=== PATIENT | female | born 1995 | race Caucasian/White ===

== ENCOUNTER → 2018-10-20 | Outpatient (CLI) | payer BC, SELFPAY ==
[2018-10-20 14:03] LABS: Absolute Lymphocyte Count 0.93 X10^3/ul (0.83-4.51); Absolute Neutrophil Count 4.4 X10^3/uL (2.0-7.7); Basophil# 0.03 X10^3/uL; Basophil% 0.5 % (0-1); Eosinophil# 0.16 X10^3/uL; Eosinophils% 2.6 % (0-5); Hematocrit 36.1 % (37-47); Hemoglobin 11.2 g/dl (12.0-15.0); Lymphocyte # 0.93 X10^3/ul (4.0); Lymphocyte % 15.2 % (19-41); Mean Corpuscular Volume 80.6 fL (81-99); Mean Platelet Vol. 9.8 fl (6.2-12.0); Monocyte# 0.57 X10^3/uL; Monocyte% 9.3 % (0-10); Neutrophil # 4.38 X10^3/uL (2.7-7.7); Neutrophil % 71.7 % (47-70); Platelet Count 402 K/mm3 (150-450); RBC Distribution Width CV 14.2 % (11.6-14.6); Red Blood Count 4.48 M/mm3 (4.2-5.4); White Blood Count 6.1 K/mm3 (4.4-11.0)
[2018-10-20 14:05] LABS: POSITIVE COUNT NO; POSITIVE DIFFERENTIAL NO; POSITIVE MORPHOLOGY NO
[2018-10-20 14:34] LABS: ALB/GLOB Ratio 0.8 RATIO (0.9-2.4); AST(SGOT) 16 U/L (15-37); Alanine Aminotransfer ALT/SGPT 27 U/L (13-56); Albumin, Serum 3.3 g/dL (3.2-5.0); Alkaline Phosphatase 87 U/L (45-117); Anion Gap 7 (5-15); BUN 16 mg/dL (7-18); BUN/Creat Ratio 23.5 RATIO (10-20); Calcium,Total 8.6 mg/dL (8.5-10.1); Chloride 107 mmol/L (98-107); Creatinine, Serum 0.68 mg/dL (0.55-1.02); EST Glomerular Filtration Rate 113 mL/min (>60); Est Glom Filt Rate - Afr Amer 137 mL/min (>60); Globulin 4.2 g/dL (2.2-4.2); Glucose 79 mg/dL (74-106); Potassium 4.3 mmol/L (3.5-5.1); Protein, Total 7.5 g/dL (6.4-8.2); Sodium Level 139 mmol/L (136-145); Thyroid Stim Hormone (TSH) 0.84 uIU/mL (0.358-3.74)
[2018-10-20 15:13] LABS: HIV - WCH Non-Reactive (Nonreactive)
[2018-10-27 12:07] LABS: Comment 2a/2c (.); HCV Quant. RNA PCR 169000 IU/mL (.); Hepatitis Be Ab Negative (Negative)
[2018-10-27 13:20] LABS: HCV log 10 5.228 (.); Hepatitis A AB, Total Negative (Negative)
[2018-11-12 14:58] LABS: Hepatitis C Genotype 2a/2c
== END | disposition home or self-care (01) ==
LOC: LAB 11:33
PROVIDERS: Referring Provider Nurse Practitioner Family; Visit Provider Nurse Practitioner Family
DX: B19.20 Unspecified viral hepatitis C without hepatic coma (principal)
CPT/HCPCS: 36415; 80053; 84443; 85025; 86703; 86707; 86708; 87522; 87902

== ENCOUNTER → 2018-10-27 | Outpatient (CLI) | payer BC, SELFPAY | END | disposition home or self-care (01) | PROVIDERS: Referring Provider Nurse Practitioner Family; Visit Provider Nurse Practitioner Family | DX: B19.20 Unspecified viral hepatitis C without hepatic coma (principal) | CPT/HCPCS: 36415; J7050; A4216 ==

== ENCOUNTER → 2019-05-19 13:08 | Outpatient (CLI) | payer BC, SELFPAY | PROVIDERS: Visit Provider Advanced Practice Midwife | DX: Z12.4 Encounter for screening for malignant neoplasm of cervix (principal); Z11.3 Encounter for screening for infections with a predominantly sexual mode of transmission; Z32.01 Encounter for pregnancy test, result positive ==

== ENCOUNTER → 2019-05-28 | Outpatient (CLI) | payer BC, SELFPAY ==
[2019-05-28 13:53] LABS: Absolute Lymphocyte Count 2.38 X10^3/uL (0.83-4.51); Absolute Neutrophil Count 6.3 X10^3/uL (2.0-7.7); Basophil# 0.03 X10^3/uL; Basophil% 0.3 % (0-1); Eosinophils% 3.1 % (0-5); Hematocrit 38.1 % (37-47); Hemoglobin 12.8 g/dL (12.0-15.0); Lymphocyte # 2.38 X10^3/ul (4.0); Lymphocyte % 24.7 % (19-41); Mean Corp Hgb Conc 33.6 g/dL (32-36); Mean Corpuscular Hgb 28.3 pg (27.0-32.0); Mean Corpuscular Volume 84.3 fL (81-99); Monocyte# 0.63 X10^3/uL; Monocyte% 6.5 % (0-10); NRBC Flagged by Analyzer 0 % (0-5); Neutrophil # 6.28 X10^3/uL (2.7-7.7); Neutrophil % 65.1 % (47-70); Platelet Count 231 K/mm3 (150-450); RBC Distribution Width SD 39.8 fl (35.1-43.9); Red Blood Count 4.52 M/mm3 (4.2-5.4); White Blood Count 9.7 K/mm3 (4.4-11.0)
[2019-05-28 13:58] LABS: COTININE Drug Screen Positive (<200 ng/mL)
[2019-05-28 14:10] LABS: Amphetamine Urine VISTA NEGATIVE (<1000 ng/mL); Barbiturate Urine VISTA NEGATIVE (< 200 ng/mL); Benzodiazepine Urine VISTA NEGATIVE (< 200 ng/mL); Cocaine Urine VISTA NEGATIVE (< 300 ng/mL); Ecstacy Urine VISTA NEGATIVE (< 500 ng/mL); Methadone Urine VISTA NEGATIVE (< 300 ng/mL); PCP Urine VISTA NEGATIVE (< 25 ng/mL); THC Urine VISTA NEGATIVE (< 50 ng/mL); Vista UDS pH Range 6
[2019-05-28 14:13] LABS: Color, Urine Yellow (Yellow); Glucose, Dipstick Normal (Normal); Ketone-Dipstick Negative (Negative); Leukocyte Esterase-Dipstick 500 /ul (Negative); Nitrite-Dipstick Negative (Negative); Occult Blood-Urine 10 /ul (Negative); Protein-Dipstick 15 mg/dl (Negative); Urine Bilirubin Dipstick Negative (Negative); Urine Clarity Sl. Cloudy (Clear); Urine Urobilinogen Normal (Normal); Urine pH 6.5 (5.0 - 8.0)
[2019-05-28 14:17] LABS: Thyroid Stim Hormone (TSH) 0.91 uIU/mL (0.358-3.74)
[2019-05-29 10:41] LABS: Toxoplasma Gondii IgG < 3.0 IU/mL (0.0-7.1); Toxoplasma Gondii IgM < 3.0 AU/mL (0.0-7.9)
[2019-05-31 11:47] LABS: HIV - WCH Non-Reactive (Nonreactive); Hepatitis B Surface Antigen Non-Reactive (Nonreactive); Rubella IgG 33.7 IU/mL
[2019-05-31 11:52] LABS: Hepatitis C Antibody Reactive (Nonreactive)
[2019-06-03 03:26] LABS: Prenatal RPR NONREACTIVE (NONREACTIVE)
== END | disposition home or self-care (01) ==
PROVIDERS: Visit Provider Obstetrics & Gynecology
DX: Z34.81 Encounter for supervision of other normal pregnancy, first trimester (principal)
CPT/HCPCS: 80307; 81002; 84443; 85025; 86703; 86762; 86777; 86778; 86803; 87340

== ENCOUNTER → 2019-10-14 11:36 | Outpatient (CLI) | payer BC, SELFPAY ==
[2019-10-14 12:27] LABS: Hematocrit 31.4 % (37-47); Mean Corp Hgb Conc 31.8 g/dL (32-36); Mean Corpuscular Hgb 27.3 pg (27.0-32.0); Mean Corpuscular Volume 85.8 fL (81-99); Mean Platelet Vol. 10.7 fl (6.2-12.0); Platelet Count 212 K/mm3 (150-450); RBC Distribution Width CV 12.7 % (11.6-14.6); RBC Distribution Width SD 39.6 fl (35.1-43.9); Red Blood Count 3.66 M/mm3 (4.2-5.4); White Blood Count 8.6 K/mm3 (4.4-11.0)
[2019-10-14 12:47] LABS: Glucose Challenge Gest 1H 50g 155 mg/dL (70-140)
[2019-10-14 14:09] LABS: Amphetamine Urine VISTA NEGATIVE (<1000 ng/mL); Barbiturate Urine VISTA NEGATIVE (< 200 ng/mL); Benzodiazepine Urine VISTA NEGATIVE (< 200 ng/mL); Cocaine Urine VISTA NEGATIVE (< 300 ng/mL); Ecstacy Urine VISTA NEGATIVE (< 500 ng/mL); Methadone Urine VISTA NEGATIVE (< 300 ng/mL); PCP Urine VISTA NEGATIVE (< 25 ng/mL); THC Urine VISTA NEGATIVE (< 50 ng/mL); Vista UDS pH Range 6
[2019-10-18 03:06] LABS: HCV Quant. RNA PCR HCV Not Detected IU/mL (.)
== END ==
PROVIDERS: Visit Provider Obstetrics & Gynecology
DX: O98.419 Viral hepatitis complicating pregnancy, unspecified trimester (principal); B19.20 Unspecified viral hepatitis C without hepatic coma; Z3A.00 Weeks of gestation of pregnancy not specified
CPT/HCPCS: 36415; 80307; 82950; 85027; 87522

== ENCOUNTER → 2019-10-22 10:30 | Outpatient (CLI) | payer BC, SELFPAY ==
[2019-10-22 11:32] LABS: Glucose GTT-Gestation. Fasting 90 mg/dL (<105)
[2019-10-22 13:40] LABS: Glucose GTT-Gestational 2 Hr 148 mg/dL (<165)
[2019-10-22 13:41] LABS: Glucose GTT-Gestational 1 Hr 141 mg/dL (<190)
[2019-10-22 16:04] LABS: Glucose GTT-Gestational 3 Hr 97 L (<145)
== END ==
PROVIDERS: PCP Obstetrics & Gynecology; Referring Provider Obstetrics & Gynecology; Visit Provider Obstetrics & Gynecology
DX: O24.912 Unspecified diabetes mellitus in pregnancy, second trimester (principal)
CPT/HCPCS: 82951; 82952

== ENCOUNTER → 2019-12-09 | Outpatient (CLI) | payer BC, SELFPAY | END | disposition home or self-care (01) | PROVIDERS: PCP Obstetrics & Gynecology; Visit Provider Obstetrics & Gynecology | DX: Z36.85 Encounter for antenatal screening for Streptococcus B (principal) | CPT/HCPCS: 87081 ==

== ENCOUNTER → 2019-12-24 10:43 | Outpatient (CLI) | payer BC, SELFPAY | PROVIDERS: PCP Obstetrics & Gynecology; Referring Provider Obstetrics & Gynecology; Visit Provider Obstetrics & Gynecology | DX: Z11.59 Encounter for screening for other viral diseases (principal) | CPT/HCPCS: 87635; C9803; U0003 ==

== ENCOUNTER 2019-12-30 05:25 | Inpatient (IN) | payer BC, SELFPAY ==
[2019-12-30] VITALS (15 sets, daily range): BP systolic 93–112; BP diastolic 44–72; PULSE 66–96; RESP 13–18; TEMP 35.7–36.6; O2SAT 94–99; BMI 32.8
[2019-12-30] MEDS: Lactated Ringers 1,000 ML 999 ML IV (05:55)
[2019-12-30 06:02] LABS: Absolute Lymphocyte Count 1.96 X10^3/uL (0.83-4.51); Absolute Neutrophil Count 7.2 X10^3/uL (2.0-7.7); Basophil# 0.03 X10^3/uL; Basophil% 0.3 % (0-1); Eosinophil# 0.15 X10^3/uL; Eosinophils% 1.5 % (0-5); Hematocrit 30.5 % (37-47); Hemoglobin 9.2 g/dL (12.0-15.0); Lymphocyte # 1.96 X10^3/ul (4.0); Lymphocyte % 19.4 % (19-41); Mean Corp Hgb Conc 30.2 g/dL (32-36); Mean Corpuscular Hgb 22.7 pg (27.0-32.0); Mean Corpuscular Volume 75.1 fL (81-99); Mean Platelet Vol. 11.2 fl (6.2-12.0); Monocyte# 0.67 X10^3/uL; Monocyte% 6.6 % (0-10); NRBC Flagged by Analyzer 0.2 % (0-5); Neutrophil # 7.16 X10^3/uL (2.7-7.7); Neutrophil % 71.1 % (47-70); Platelet Count 216 K/mm3 (150-450); RBC Distribution Width CV 15.5 % (11.6-14.6); RBC Distribution Width SD 42.5 fl (35.1-43.9); Red Blood Count 4.06 M/mm3 (4.2-5.4); White Blood Count 10.1 K/mm3 (4.4-11.0)
[2019-12-30] MEDS: Acetaminophen 500 MG Tablet 1000 MG PO ×3 (06:10→18:15)
--- NOTE | 2019-12-30 06:42 | HP.PCM_ITS ---
History and Physical Date of Admission: 12/30/19 Chief complaint: Repeat HPI: 24-year-old G2, P1 at 39 weeks and 0 days JERROD 924 2020 x 8-week ultrasound?a repeat . Denies chest pain, shortness of breath, nausea vomiting, right upper quadrant pain, vaginal bleeding, leakage of fluid. States good movement OB history: G1: 41-week primary for failure to progress and failed vacuum. Male 10/03/2018. ICU stay for bradycardia Past medical history: Hep C status post treatment Failed 1 hour Past surgical history: Primary Medications: vitamin Allergies: Augmentin/penicillin (anaphylaxis) Social smoker Family history: Negative for DVT and PE Vitals: Vital Signs Temp Pulse Resp BP Pulse Ox 12/30/19 05:51 97.3 F L 90 16 107/72 98 Physical: General: Normal appearing no acute distress HEENT: Normocephalic atraumatic Respiratory: No labored breathing, no use of accessory muscles Abdomen: Soft nontender, gravid Extremities: No peripheral edema normal peripheral pulses Psych: Normal affect normal demeanor nonpressured speech NST heart rate: 130s/moderate ability/positive accelerations/negative decelerations [place]: Few contractions Mom's Labs & Results 12/30/19 12/30/19 12/30/19 05:50 05:50 06:45 WBC 10.1 RBC 4.06 L Hgb 9.2 L Hct 30.5 L MCV 75.1 L MCH 22.7 L MCHC 30.2 L RDW Std Deviation 42.5 RDW Coeff of Meredith 15.5 H Plt Count 216 MPV 11.2 Immature Gran % (Auto) 1.100 H Neut % (Auto) 71.1 H Lymph % (Auto) 19.4 [place] % (Auto) 6.6 Eos % (Auto) 1.5 Baso % (Auto) 0.3 Absolute Neuts (auto) 7.2 Absolute Lymphs (auto) 1.96 Nucleated RBC % 0.2 Chlam trachomat DNA PCR Pending N.gonorrhoeae DNA (PCR) Pending Blood Type Pending Antibody Screen Pending Course Did the patient receive Yes care? Labs Blood Type: O RH: POSITIVE RPR/VDRL/Syphilis Nonreactive Rubella status Immune HbSAg Negative Date Done: 05/28/19 Chlamydia Not Done Gonorrhea Not Done HIV/AIDS Non-Reactive Group B Strep: Negative Other Lab Procedures/Results/ hx of hep C, antibody + RNA negative Comments: Assessment and plan 24-year-old G2, P1 at 39 weeks and 0 days arrives for repeat -Admit to labor and delivery -CEFM ?Gent/Clinda based on allergies -Hepatitis C status post treatment last viral load undetectable. All reassuring. Will need follow-up with infectious disease ?Anesthesia to see
[2019-12-30] MEDS: Lactated Ringers 1,000 ML 150 ML IV (06:56)
[2019-12-30] MEDS: Sodium Citrate/Citric Acid 30 ML UDC PO (07:07)
[2019-12-30] MEDS: Oxytocin 30 units/NS 500 ml 30 UNITS/500 ML IV.SOLN 167 UNITS IV (08:45)
[2019-12-30 09:39] LABS: Chlamydia Trachomatis by PCR Negative (Negative); Neisserai gonorrhoeae by PCR Negative (Negative); Probe Check PASS; Sample Adequacy Control PASS; Specimen Processing Control PASS
[2019-12-30] MEDS: Lactated Ringers 1,000 ML 100 ML IV (11:51)
--- NOTE | 2019-12-30 12:28 | OP.PCM_ITS ---
Delivery Classification: Scheduled Final JERROD: 01/06/20 Final JERROD Source: US <20 weeks Gestational age: 39 Weeks and 0 Days Type of Anesthesia:: Spinal Date of Procedure: 12/30/19 Pre-Operative Diagnosis: Term, history of section Post-Operative Diagnosis: Term, repeat section Indications for : Repeat Elective Description of Procedure: Findings: Normal uterus, tubes, and ovaries. Female in vertex position. Apgars 9/9. Clear amniotic fluid Consent: Patient with term with a history of section need a repeat C- section. Patient was seen his risk procedure include but not limited to this risk injury, prolonged hospitalization, blood loss transfusion, reoperation. Patient stated understanding was proceed. All questions consent was signed. Procedure: Patient was brought back to the OR where spinal anesthesia found to be adequate. Patient appeared draped in supine position with leftward tilt. Gentamicin and clindamycin were given for infection prophylaxis. Pfannenstiel incision made skin with a scalpel. Incision was carried down to the fascia with a scalpel. The fascia was excised and extended laterally. Zaina was placed in the inferior aspect of the fascia and the underlying rectus pronounced muscle dissected off sharply with Francis scissors. In a similar fashion superior aspect of the fascia was dissected off sharply. Rectus muscle staff and divided at the midline and the peritoneum was entered bluntly extended extending superior and inferiorly with good visualization of bladder. Bladder blade was inserted vesicouterine peritoneum was identified. Low transverse uterine incision was made with a scalpel. Clear fluid was noted. He was placed in the hysterotomy. Bladder blade was removed and gentle fundal pressure was applied head and shoulders delivered with ease. Cord was cut and clamped and he was handed off to nursing. Placenta was delivered via fundal massage and cord traction. IV access was initiated to facilitate uterine contractions. Uterus was exteriorized and uterine cavity was wiped with laparotomy sponge in order to remove remaining placental membranes. Uterus was closed in a continuous running fashion. Second layer was performed. Good anesthesia was noted. Normal uterus, tubes, and ovaries. Uterus placed back in the abdominal cavity. Muscles reapproximated. Fascia was closed continuous running fashion. Skin was closed subjective fashion. All counts correct x2. Patient taught procedure well was brought to recovery in stable condition. Esitmated Blood Loss (ml): 800 Infant Gender: Female (1 minute): 9 (5 minute): 9 Delayed cord clamping: Yes - Admit VTE Documentation VTE Mechan Device Prophylaxis: SCD's
--- NOTE | 2019-12-30 12:50 | CPS ---
patient nursing. left incentive to be started by nursing
--- NOTE | 2019-12-30 12:51 | CPS ---
patient nursing, left in room, nursing to start
[2019-12-30] MEDS: Ondansetron 4 MG/2 ML Vial IV (13:22)
[2019-12-30] MEDS: 0.9% Saline Lock 10 ML Syringe IV ×3 (13:59→20:10)
[2019-12-30] MEDS: Ketorolac 30 MG/ML Syringe IV ×2 (13:59→20:12)
[2019-12-30] MEDS: proCHLORPERazine 10 MG/2 ML Vial IV (16:00)
[2019-12-30] MEDS: Enoxaparin 40 MG/0.4 ML Syringe SC (20:03)
[2019-12-31] MEDS: Acetaminophen 500 MG Tablet 1000 MG PO ×3 (00:26→12:38)
[2019-12-31 00:28] VITALS: BP 101/59; PULSE 87; RESP 18; TEMP 36.7; O2SAT 96
[2019-12-31] MEDS: 0.9% Saline Lock 10 ML Syringe IV ×2 (02:15→08:14)
[2019-12-31] MEDS: Ketorolac 30 MG/ML Syringe IV ×2 (02:16→08:06)
[2019-12-31 04:11] VITALS: BP 104/45; PULSE 82; RESP 18; TEMP 36.8; O2SAT 95
[2019-12-31 04:32] LABS: Hematocrit 24.4 % (37-47); Hemoglobin 7.3 g/dL (12.0-15.0); Mean Corp Hgb Conc 29.9 g/dL (32-36); Mean Corpuscular Hgb 22.6 pg (27.0-32.0); Mean Corpuscular Volume 75.5 fL (81-99); Mean Platelet Vol. 10.8 fl (6.2-12.0); Platelet Count 201 K/mm3 (150-450); RBC Distribution Width CV 15.6 % (11.6-14.6); RBC Distribution Width SD 42.7 fl (35.1-43.9); Red Blood Count 3.23 M/mm3 (4.2-5.4); White Blood Count 11.2 K/mm3 (4.4-11.0)
[2019-12-31 07:35] VITALS: BP 103/57; PULSE 78; RESP 16; TEMP 36.1
--- NOTE | 2019-12-31 08:07 | PCM.PN.OB ---
Subjective: POD1 Objective: Feeling well. Has been up ambulating without dizziness or shortness of breath. Lochia minimal. Trying to breastfeed, but also bottle feeding. - Physical Exam Vitals/I&O's: Vital Signs Temp Pulse Resp BP Pulse Ox 97 F L 78 16 103/57 L 95 12/31/19 07:35 12/31/19 07:35 12/31/19 07:35 12/31/19 07:35 12/31/19 04:11 Oxygen Delivery Method Room Air Weight: 84 kg Body Mass Index (BMI) 32.8 Intake and Output for Last 24 Hours 12/29/19 12/30/19 12/31/19 23:59 23:59 23:59 Intake Total 3440.67 / 3440.67 Output Total 950 / 1150 400 / 400 Balance 2490.67 / 2290.67 -400 / -400 General: Alert, Oriented x3, No apparent distress HEENT: Atraumatic, Normocephalic Lungs: Normal air movement Abdomen: Soft - uterus 2 below umbilicus, dressing c/d Extremities: No edema Neurological: Neuro grossly intact Psych/Mental Status: Normal Affect, Appropriate Laboratory Results 12/30/19 06:45: Chlam trachomat DNA PCR Negative, N.gonorrhoeae DNA (PCR) Negative 12/31/19 04:25: WBC 11.2 H, RBC 3.23 L, Hgb 7.3 L, Hct 24.4 L, MCV 75.5 L, MCH 22.6 L, MCHC 29.9 L, RDW Std Deviation 42.7, RDW Coeff of Meredith 15.6 H, Plt Count 201, MPV 10.8 Current Medications Acetaminophen (Tylenol) 1,000 mg PO Q6 [facility] Last Admin: 12/31/19 06:27 Dose: 1,000 mg Documented by: Bisacodyl (Dulcolax) 10 mg RECTAL UD PRN PRN Reason: If no BM Enoxaparin Sodium (Lovenox) 40 mg SC DAILY@194 [facility] Last Admin: 12/30/19 20:03 Dose: 40 mg Documented by: Hydrocortisone (Hytone) 1 applic TOPICAL TID PRN PRN; Protocol PRN Reason: Discomfort Naloxone HCl 4 mg/ Dextrose 504 mls @ 0 mls/hr IV .Q0M PRN; Protocol PRN Reason: Respiratory depression Ibuprofen (Motrin) 600 mg PO Q6 KITTY Naloxone HCl (Narcan) 0.02 mg IV Q1M PRN PRN Reason: RR <10 and pt unresponsive Ondansetron HCl (Zofran) 4 mg IV Q4H PRN PRN PRN Reason: Nausea Last Admin: 12/30/19 13:22 Dose: 4 mg Documented by: Oxycodone HCl (Oxyir) 5 mg PO Q4H PRN PRN PRN Reason: Pain Score 6-10/10 Prochlorperazine Edisylate (Compazine Iv) 10 mg IV Q6H PRN PRN PRN Reason: NAUSEA Last Admin: 12/30/19 16:00 Dose: 10 mg Documented by: Senna/Docusate Sodium (Senokot-S, Marylin-Colace) 0 tablet PO DAILY KITTY Last Admin: 12/30/19 10:56 Dose: Not Given Documented by: Simethicone (Mylicon) 80 mg PO PCHS PRN PRN Reason: Indigestion/stomach pain Sodium Chloride () 5 - 15 ml IV UD PRN PRN Reason: SALINE FLUSH Last Admin: 12/31/19 02:15 Dose: 10 ml Documented by: Medical Necessity - Tobacco Use Smoking Status: Former smoker Assessment/Plan POD#1 s/p repeat section. Complicated by HCV, acute on chronic anemia secondary to surgery (vitals stable, asymptomatic. Pt to take iron on discharge). Home this afternoon.
--- NOTE | 2019-12-31 08:09 | DCINST_ITS ---
Discharge Diet: No Restrictions Discharge Activity: May not drive while taking narcotic pain medications., May Shower May resume sexual activity in: 6 weeks Weight Bearing Status: Weight bearing as tolerated Call your doctor if your incision/area has: Sudden Increased Bleeding, Increased Pain/ Swelling, Increased Redness, Foul Smelling Discharge Call your doctor if you observe: Fever of 101 or Higher Cleanse incision/area with: Soap & Water Additional Instructions: If you experience any of the following, contact your healthcare provider. * Bleeding that soaks a pad every hour for 2 hours * Fever 100.4 or higher * Unrelieved incision or abdominal pain * Swelling, redness, discharge or bleeding from your incision or episiotomy site * Your incision begins to separate * Problems urinating (including inability to urinate or burning while urinating). * Visual changes * Severe headache * Flu-like symptoms * Pain or redness in one of both of your breasts * Pain, warmth, tenderness or swelling in your legs, especially the calf area * Frequent nausea and vomiting * Symptoms of depression or anxiety If you experience any of the following, call 911 or go to the nearest Emergency Room. * Chest pain * Problems breathing * Seizure activity * Partial or complete paralysis of a body part, slurred speech, weakness or drooping of the face, or a sudden inability to walk or hold your balance Allergies/Adverse Reactions: Allergies amoxicillin [From Augmentin] Allergy (Verified 12/30/19 05:49) Anaphylaxis clavulanic acid [From Augmentin] Allergy (Verified 12/30/19 05:49) Anaphylaxis Penicillins [PCN] Allergy (Verified 12/30/19 05:49) Anaphylaxis Medications to take at Discharge NK 12/30/19 Follow-Up: Call to make an appointment with your doctor for an incision check in 1-2 weeks. You will also need a 6 week post- follow up appointment. Test results from this visit will be discussed in further detail at your follow- up appointment, if applicable. Please Follow Up With: Shoaib Govea MD When: 2 week incision check. 6 weeks . Primary Care Physician: Andree Pollard CNM [Primary Care Provider] -
[2019-12-31] MEDS: Senna/Docusate Sodium 1 Tablet PO (09:48)
--- NOTE | 2019-12-31 10:16 | NURSING ---
SUPERVISED STUDENT ADMINISTERING TORADOL. REVIEWED STUDENT'S DOCUMENTATION FOR COMPLETENESS
[2019-12-31 12:39] VITALS: BP 102/58; PULSE 67; RESP 16; TEMP 36.7
--- NOTE | 2019-12-31 14:11 | NURSING ---
1400 mother dc off unit. has meds from pharmacy and personal belongings
== END 2019-12-31 14:00 | disposition home or self-care (01) | DRG 787 ==
PROVIDERS: Admitting Provider Obstetrics & Gynecology; PCP Obstetrics & Gynecology; Referring Provider Obstetrics & Gynecology; Visit Provider Obstetrics & Gynecology
PROC: 10D00Z1 Extraction of Products of Conception, Low, Open Approach (ICD-10-PCS; CPT 59514; principal; 2019-12-30 07:15)
DX: O34.219 Maternal care for unspecified type scar from previous cesarean delivery (principal); O98.42 Viral hepatitis complicating childbirth; B19.20 Unspecified viral hepatitis C without hepatic coma; O99.02 Anemia complicating childbirth; D64.9 Anemia, unspecified; Z87.891 Personal history of nicotine dependence; Z3A.39 39 weeks gestation of pregnancy; Z37.0 Single live birth
CPT/HCPCS: 85025; 85027; 86850; 86900; 86901; 87491; 87591; 99218; 99251; J7120; A4216; G0378; G0463; J2405

== ENCOUNTER → 2020-02-10 | Outpatient (CLI) | payer BC, SELFPAY ==
[2019-12-30 05:47] VITALS: BMI 32.8
[2020-02-15 03:06] LABS: Chlamydia By Nucleic Acid AMP Negative (Negative)
[2020-02-15 12:08] LABS: Gonococcus By Nucleic Acid AMP Negative (Negative)
== END | disposition home or self-care (01) ==
LOC: LABSPEC 15:14
PROVIDERS: PCP Obstetrics & Gynecology; Visit Provider Obstetrics & Gynecology
DX: Z11.3 Encounter for screening for infections with a predominantly sexual mode of transmission (principal)
CPT/HCPCS: 87491; 87591

== ENCOUNTER 2020-09-03 21:45 | Emergency (ER) | payer SELFPAY ==
[2019-12-30 05:47] VITALS: BMI 32.8
[2020-09-03 21:46] VITALS: BP 116/66; PULSE 125; RESP 16; TEMP 36.5; O2SAT 98; BMI 25.1
--- NOTE | 2020-09-03 22:23 | CT_ITS ---
INDICATION: abdominal pain EXAMINATION: CT Abdomen And Pelvis W/ Contrast Injection TECHNIQUE: Helically acquired images were obtained of the abdomen and pelvis after IV contrast. A radiation dose optimization technique was used for this scan. IV Contrast dosage and agent: IV 100mL Isovue-300 Oral contrast: None. COMPARISON: None. FINDINGS: Visualized lung bases: Bibasilar atelectasis. Liver: Unremarkable Gallbladder: Few small intraluminal stones seen. Spleen: Unremarkable Pancreas: Unremarkable Adrenal Glands: Unremarkable Kidneys: Unremarkable Vasculature: Unremarkable GI Tract: Unremarkable Lymphadenopathy: None Peritoneum: No ascites. Bladder: Unremarkable Reproductive organs: IUD in place. Bones/Soft tissues: No suspicious osseous or soft tissue lesions CT/Abdomen/Pelvis W IV Cont ONLY IMPRESSION: No acute abnormalities in the abdomen or pelvis. Cholelithiasis. Electronically Signed: Shabbir Purdy MD at 23:38 EDT Tel , Service support ,
--- NOTE | 2020-09-03 22:24 | ED.VIS.GI ---
HPI HPI - GI History of Present Illness Chief Complaint: Abd Pain Narrative Narrative: 25-year-old female presenting with abdominal pain. She describes it as epigastric. She states it was intermittent yesterday and today. She has had vomiting without black or bloody emesis. She denies diarrhea or constipation. She denies urinary complaints. She is on control and has no concern for . Patient states that she had a fever prior to arrival and took nothing for fever. She denies body aches, chills, myalgias, change in taste or smell. She states that she has had 2 C-sections in the past and these are only abdominal surgeries. She states that she does drink occasionally but is not a heavy drinker. No history of pancreatitis. PFSH PFSH Home Medications ondansetron HCl [Zofran] 4 mg PO Q8H PRN #10 tab 09/03/20 [Rx Last Taken Unknown] Allergy/AdvReac Type Severity Reaction Status Date / Time amoxicillin [From Augmentin] Allergy Anaphylaxis Verified 09/03/20 21:46 clavulanic acid Allergy Anaphylaxis Verified 09/03/20 21:46 [From Augmentin] Penicillins [PCN] Allergy Anaphylaxis Verified 09/03/20 21:46 Social History Smoking Status: Former smoker ROS ROS ED Constitutional Constitutional ED: Denies chills, fever(s) or sweats Eyes Eyes: Denies blurry vision or change in vision ENT ENT ED: Denies ear pain, rhinorrhea or sore throat Cardiovascular Cardiovascular: Denies chest pain, palpitations or racing heartbeat Respiratory/Chest Respiratory/Chest: Denies cough, dyspnea or sputum Gastrointestinal Gastrointestinal: Reports abdominal pain and vomiting; Denies constipation or diarrhea Genitourinary Genitourinary ED: Denies dysuria, hematuria or urinary frequency Musculoskeletal Musculoskeletal: Denies arthralgias, myalgias or neck pain Integumentary Denies abscess, Abrasions or rash Neurologic Neurologic: Denies headache(s), paresthesias or weakness Psychiatric Psychiatric: Denies anxiety, depression, suicidal ideation or suicidal thoughts Endocrine Endocrinology: Denies polydipsia or polyuria EXAM Physical Exam Const Vital Signs: 09/03/20 21:46 Temperature 97.7 F L Temperature Source Temporal Pulse Rate 125 H Respiratory Rate 16 Blood Pressure 116/66 Blood Pressure Mean 82 Pulse Ox 98 Oxygen Delivery Method Room Air General Appearance ED: Negative for pallor HEENT Reports normocephalic, head/scalp atraumatic and moist mucous membranes Eyes PERRL and EOMs intact bilaterally General Eye ED: Negative for scleral icterus Neck no lymphadenopathy and supple Chest Wall inspection of chest normal and palpation of chest normal Resp normal respiratory effort and clear to auscultation bilaterally Auscultation: Negative for rales, rhonchi or wheezes Cardio regular rate and regular rhythm GI normal to inspection, nondistended, normoactive bowel sounds and non-distended Auscultation: normoactive bowel sounds Palpation: soft and tender epigastric Narrative: Deferred Back/Spine no CVA tenderness Extremity normal to inspection Neuro oriented x3 and CN's II-XII intact bilaterally Sensorium / Orientation: alert Motor Exam: strength 5/5 throughout Psych mental status grossly normal Attitude: No agitated Skin no rashes or lesions noted and no wounds General Skin Exam: Negative for jaundice or pallor MDM MDM MDM Narrative Medical decision making narrative: Patient presenting with abdominal pain. She states is been intermittent since yesterday. She states she had a fever at home but took nothing for fever and she is afebrile here. Patient also has nausea and vomiting. Patient was given 4 mg of Zofran and 4 mg of morphine and feels improved. CBC shows no leukocytosis. Hemoglobin factor stable. Electrolytes and renal function are normal. Urinalysis is negative. hCG negative. Patient feeling improved and I will discharge her home with a work note for tomorrow. She is given Zofran for home. Impression: 1. Nausea/vomiting 2. Abdominal pain unknown cause Lab Data Labs: Laboratory Results - last 24 hr 09/03/20 09/03/20 09/03/20 22:13 22:13 22:30 WBC 6.7 RBC 5.37 Hgb 13.6 Hct 42.0 MCV 78.2 L MCH 25.3 L MCHC 32.4 RDW Std Deviation 43.3 RDW Coeff of Meredith 15.3 H Plt Count 202 MPV 10.7 Immature Gran % (Auto) 0.400 Neut % (Auto) 80.4 H Lymph % (Auto) 13.1 L [place] % (Auto) 5.3 Eos % (Auto) 0.4 Baso % (Auto) 0.4 Absolute Neuts (auto) 5.4 Absolute Lymphs (auto) 0.88 Nucleated RBC % 0 Sodium 135 L Potassium 3.6 Chloride 103 Carbon Dioxide 24.0 Anion Gap 8 BUN 11 Creatinine 0.62 Estim Creat Clear Calc 144.96 Est GFR (MDRD) Af Amer 149 Est GFR (MDRD) Non-Af 123 BUN/Creatinine Ratio 17.6 Glucose 94 Calcium 8.8 Total Bilirubin 0.40 AST 17 ALT 29 Alkaline Phosphatase 77 Total Protein 8.0 Albumin 4.0 Globulin 4.0 Albumin/Globulin Ratio 1.0 Lipase 47 L Urine Color Yellow Urine Clarity Clear Urine pH 5.0 Ur Specific [place] 1.020 Urine Protein 30 H Urine Glucose (UA) Normal Urine Ketones 5 H Urine Occult Blood Negative Urine Nitrite Negative Urine Bilirubin 1 H Urine Urobilinogen 1 H Ur Leukocyte Esterase 100 H Urine RBC 0 SEEN Urine WBC 0-5 SEEN Ur Squamous Epith Cells 0-5 SEEN Urine Bacteria 0 SEEN Urine Mucus 1+ Urine Test Negative Radiography Diagnostic Testing: Radiology Impression Abdomen/Pelvis CT 09/03/20 22:23 IMPRESSION: No acute abnormalities in the abdomen or pelvis. Cholelithiasis. Electronically Signed: Shabbir Purdy MD at 23:38 EDT Tel , Service support , Discharge Plan Triage Chief Complaint: Abd Pain Other Complaint: Nausea/Vomiting ED Provider: Augustine Macdonald Dx/Rx/DC Orders Instructions: ED Abdominal Pain Unkn Cause Fem Prescriptions: New ondansetron HCl [Zofran] 4 mg tablet 4 mg PO Q8H PRN (Reason: nausea and vomiting) Qty: 10 RF: 0 Stand Alone Forms: ED Work / School Excuse Primary Care Provider: Care Physician,No Primary Referrals: Care Physician,No Primary [Primary Care Provider] - Disposition Disposition: Home, self care
[2020-09-03] MEDS: 0.9% Normal Saline 1,000 ML 1000 ML IV (22:36)
[2020-09-03] MEDS: Morphine 4 MG/ML Syringe IV (22:36)
[2020-09-03] MEDS: Ondansetron 4 MG/2 ML Vial IV (22:36)
[2020-09-03 22:45] LABS: Absolute Lymphocyte Count 0.88 X10^3/uL (0.83-4.51); Absolute Neutrophil Count 5.4 X10^3/uL (2.0-7.7); Basophil# 0.03 X10^3/uL; Basophil% 0.4 % (0-1); Eosinophil# 0.03 X10^3/uL; Eosinophils% 0.4 % (0-5); Hemoglobin 13.6 g/dL (12.0-15.0); Lymphocyte # 0.88 X10^3/ul (0.83-4.51); Lymphocyte % 13.1 % (19-41); Mean Corp Hgb Conc 32.4 g/dL (32-36); Mean Corpuscular Hgb 25.3 pg (27.0-32.0); Mean Corpuscular Volume 78.2 fL (81-99); Mean Platelet Vol. 10.7 fl (6.2-12.0); Monocyte# 0.36 X10^3/uL; Monocyte% 5.3 % (0-10); NRBC Flagged by Analyzer 0 % (0-5); Neutrophil % 80.4 % (47-70); Platelet Count 202 K/mm3 (150-450); RBC Distribution Width CV 15.3 % (11.6-14.6); RBC Distribution Width SD 43.3 fl (35.1-43.9); Red Blood Count 5.37 M/mm3 (4.2-5.4); White Blood Count 6.7 K/mm3 (4.4-11.0)
[2020-09-03 23:01] LABS: AST(SGOT) 17 U/L (15-37); Alanine Aminotransfer ALT/SGPT 29 U/L (13-56); Alkaline Phosphatase 77 U/L (45-117); Anion Gap 8 (5-15); BUN 11 mg/dL (7-18); BUN/Creat Ratio 17.6 RATIO (10-20); Calcium,Total 8.8 mg/dL (8.5-10.1); Chloride 103 mmol/L (98-107); Creatinine, Serum 0.62 mg/dL (0.55-1.02); EST Glomerular Filtration Rate 123 mL/min (>60); Est Glom Filt Rate - Afr Amer 149 mL/min (>60); Estimated Creatinine Clearance 144.96 ml/min; Glucose 94 mg/dL (74-106); Lipase 47 U/L (73-393); Potassium 3.6 mmol/L (3.5-5.1); Sodium Level 135 mmol/L (136-145)
[2020-09-03 23:01] LABS: Bacteria 0 SEEN /hpf (None Seen); Red Blood Cells-Urine 0 SEEN /hpf (0-5)
[2020-09-03 23:04] LABS: Color, Urine Yellow (Yellow); Glucose, Dipstick Normal (Normal); Ketone-Dipstick 5 mg/dl (Negative); Leukocyte Esterase-Dipstick 100 /ul (Negative); Nitrite-Dipstick Negative (Negative); Occult Blood-Urine Negative /ul (Negative); Protein-Dipstick 30 mg/dl (Negative); Urine Clarity Clear (Clear); Urine Urobilinogen 1 mg/dl (Normal)
[2020-09-03 23:09] LABS: Urine Bilirubin Dipstick 1 mg/dL (Negative)
[2020-09-03 23:10] LABS: Mucous, Urine 1+ /hpf (<or=2+); Squamous Epithelial Cells - UA 0-5 SEEN /hpf (5-10); White Blood Cells 0-5 SEEN /hpf (0-5)
[2020-09-03 23:11] LABS: Internal QC Validated? YES +Cl - CLEAR BKGD; Pregnancy, Urine Negative Negative
[2020-09-03 23:58] VITALS: BP 118/74; PULSE 71; RESP 18; O2SAT 100
== END 2020-09-03 23:59 | disposition home or self-care (01) ==
PROVIDERS: Emergency Provider Student in an Organized Health Care Education/Training Program
DX: R11.10 Vomiting, unspecified (principal); R11.2 Nausea with vomiting, unspecified; Z79.899 Other long term (current) drug therapy; Z87.891 Personal history of nicotine dependence
CPT/HCPCS: 74177; 80053; 81001; 81025; 83690; 85025; 96361; 96374; 96375; 99284; J7030; Q9967; J2405